=== PATIENT | male | born 1985 | race African-American/Black ===

== ENCOUNTER 2018-10-12 16:00 | Emergency (ER) | payer SELFPAY ==
[~2018-10-12] VITALS: Ht 170.2 cm; Wt 79.5 kg
[2018-10-12] MEDS ORDERED: DEXAMETHASONE SOD PHOS 4 MG/ML 5 ML VIAL IVP ONE (17:00)
[2018-10-12] MEDS ORDERED: CLINDAMYCIN 900 MG/D5% WATER 50 ML IV ONE (17:00)
[2018-10-12] MEDS ORDERED: KETOROLAC TROMETHAMINE 30 MG/ML VIAL IVP ONE (17:00)
[2018-10-12 17:22] LABS: BASOPHILS % (AUTO) 0.3 % (0.0-2.0); EOSINOPHILS % (AUTO) 1.6 % (1.0-6.0); HEMATOCRIT 41.9 % (41-53); HEMOGLOBIN 14.2 g/dL (13.5-17.5); LYMPHOCYTES % (AUTO) 11.5 % (22.0-44.0); MEAN CORPUSCULAR HGB CONC 33.9 G/dL (31.0-37.0); MEAN CORPUSCULAR VOLUME 95 fL (80-100); MONOCYTES # (AUTO) 1.8 K/uL (0.1-1.0); MONOCYTES % (AUTO) 10.3 % (2.0-9.0); NEUTROPHILS # (AUTO) 13.5 K/uL (1.8-7.7); NEUTROPHILS % (AUTO) 76.3 % (40.0-70.0); PLATELET COUNT (AUTO) 288 K/uL (150-450); RED BLOOD CELL COUNT(AUTO) 4.43 MIL/uL (4.50-5.90); RED CELL DISTRIBUTION WIDTH 12.8 % (11.5-14.5)
[2018-10-12 17:39] LABS: ANION GAP 12 mmol/L (8-16); CALCIUM, TOTAL 9.8 mg/dL (8.8-10.5); CARBON DIOXIDE 30 mmol/L (22-29); CHLORIDE 98 mmol/L (98-107); CREATININE 1.15 mg/dL (0.60-1.30); GLOMERULAR FILTR. RATE CALC > 60 mL/min (>60); GLUCOSE,RANDOM 85 mg/dL (70-110); POTASSIUM 3.8 mmol/L (3.5-5.1); SODIUM SERUM 140 mmol/L (136-145); UREA NITROGEN, BLOOD 6 mg/dL (7-18)
[2018-10-12 17:45] LABS: ALANINE AMINOTRANSFERASE 47 U/L (12-78); ALBUMIN 3.5 g/dL (3.4-5.0); ALKALINE PHOSPHATASE 102 U/L (46-116); ASPARTATE AMINOTRANSFERASE 37 U/L (15-37); BILIRUBIN,TOTAL 0.3 mg/dL (0.1-1.0); TOTAL PROTEIN, SERUM 8.8 g/dL (6.4-8.2)
[2018-10-12] MEDS ORDERED: IOVERSOL 320 MG/ML 100 ML VIAL ONE (18:17)
[2018-10-12] MEDS ORDERED: SODIUM CHLORIDE 0.9% 100 ML ONE (18:17)
[2018-10-12] MEDS ORDERED: DiphenhydrAMINE HCL 50 MG/ML VIAL IVP ONE (18:30)
[2018-10-12 19:29] VITALS: BP 147/83
== END 2018-10-12 19:43 | disposition home or self-care (01) ==
LOC: EMS 16:01
DX: J36 Peritonsillar abscess (principal); F12.90 Cannabis use, unspecified, uncomplicated
CPT/HCPCS: 36415; 70491; 80053; 85025; 96365; 96375; 99284; J1100; J1200; J1885; J3490; J7050; Q9967